=== PATIENT | male | born 1960 | race Caucasian/White ===

== ENCOUNTER 2016-11-01 10:17 | Emergency (ER) | payer BC ==
[~2016-11-01] VITALS: Ht 180.3 cm; Wt 82.0 kg
[2016-11-01 10:31] VITALS: BP 139/84
== END 2016-11-01 11:32 | disposition home or self-care (01) ==
LOC: ED 10:22
DX: J40 Bronchitis, not specified as acute or chronic (principal); F17.210 Nicotine dependence, cigarettes, uncomplicated
CPT/HCPCS: 71020; 99282; 99283